=== PATIENT | female | born 1965 | race Hispanic/Latino ===

== ENCOUNTER 2017-09-16 04:35 | Emergency (ER) | payer MEDICAID, MEDICARE ==
[2017-09-16 04:35] VITALS: BMI 19.3
--- NOTE | 2017-09-16 05:00 | ED PDOC ---
Arrival/HPI - General Chief Complaint: Trauma Time Seen by Provider: 09/16/17 04:55 Historian: Patient - History of Present Illness Narrative History of Present Illness (Text): 09/16/17 04:55 Cira Estrada is a 52 year old female, whose past medical history includes schizophrenia, who presents to the Emergency department brought in by EMS status mechanical fall tonight. Patient states she slipped and fell on to her left side while walking insider her apartment prior to arrival. Patient sustained a laceration to her left eyebrow/forehead and is complaining of left shoulder pain, worse with movement. Patient denies any back pain, neck pain, headache, dizziness, loss of consciousness, chest pain, shortness of breath, nausea, vomiting, or any other complaints. Time/Duration: Prior to Arrival Symptom Onset: Sudden Symptom Course: Unchanged Activities at Onset: Light Context: Walking, Home, Slipped Past Medical History - Provider Review Nursing Documentation Reviewed: Yes - Past History Past History: No Previous - Infectious Disease Hx of Infectious Diseases: None - Tetanus Immunization Tetanus Immunization: Unknown - Reproductive Menopause: Yes - Cardiac Hx Cardiac Disorders: No - Pulmonary Hx Respiratory Disorders: No - Neurological Hx Neurological Disorder: No - HEENT Hx HEENT Disorder: No - Renal Hx Renal Disorder: No - Endocrine/Metabolic Hx Endocrine Disorders: No - Hematological/Oncological Hx Blood Disorders: Yes Hx Anemia: Yes - Integumentary Hx Dermatological Disorder: No - Musculoskeletal/Rheumatological Hx Falls: No - Gastrointestinal Hx Gastrointestinal Disorders: Yes (colitis on this admission) - Genitourinary/Gynecological Hx Genitourinary Disorders: No - Psychiatric Hx Depression: Yes Hx Emotional Abuse: No Hx Physical Abuse: No Hx Schizophrenia: Yes Hx Substance Use: No - Past Surgical History Past Surgical History: No Previous - Suicidal Assessment Feels Threatened In Home Enviroment: No Family/Social History - Physician Review Nursing Documentation Reviewed: Yes Family/Social History: Unknown Family HX Smoking Status: Never Smoked Hx Alcohol Use: No Hx Substance Use: No Hx Substance Use Treatment: No Allergies/Home Meds Allergies/Adverse Reactions: Allergies No Known Allergies Allergy (Verified 11/22/12 14:53) Home Medications: Home Meds Medication Instructions Recorded Confirmed traZODone [trazodone Hydrochloride] 100 mg PO HS 09/16/17 09/16/17 Review of Systems - Physician Review All systems were reviewed & negative as marked: Yes - Review of Systems Constitutional: Normal. absent: Fevers Eyes: Normal ENT: Normal Respiratory: Normal. absent: SOB, Cough Cardiovascular: Normal. absent: Chest Pain Gastrointestinal: Normal. absent: Abdominal Pain, Diarrhea, Nausea, Vomiting Genitourinary Female: Normal. absent: Dysuria, Frequency, Hematuria, Urine Output Changes Musculoskeletal: Arthralgias (+left shoulder pain). absent: Back Pain, Neck Pain Skin: Laceration (+left eyebrow laceration) Neurological: Normal. absent: Headache, Dizziness Endocrine: Normal Hemo/Lymphatic: Normal Psychiatric: Normal Physical Exam Vital Signs Reviewed: Yes Vital Signs Temp Pulse Resp BP Pulse Ox 09/16/17 08:03 98.8 F 99 H 19 116/79 100 09/16/17 07:25 97.5 F L 86 18 128/84 100 09/16/17 07:00 97.5 F L 85 18 126/81 97 09/16/17 06:35 90 18 131/80 100 09/16/17 04:52 97.5 F L 89 18 124/71 98 Temperature: Afebrile Blood Pressure: Normal Pulse: Regular Respiratory Rate: Normal Appearance: Positive for: Well-Appearing, Non-Toxic, Comfortable Pain Distress: None Mental Status: Positive for: Alert and Oriented X 3 - Systems Exam Head: Present: Normocephalic, Laceration (4 cm stellate laceration to left eyebrow/forehead laceration) Pupils: Present: PERRL Extroacular Muscles: Present: EOMI Conjunctiva: Present: Normal Mouth: Present: Moist Mucous Membranes Neck: Present: Normal Range of Motion Respiratory/Chest: Present: Clear to Auscultation, Good Air Exchange. No: Respiratory Distress, Accessory Muscle Use Cardiovascular: Present: Regular Rate and Rhythm, Normal S1, S2. No: Murmurs Abdomen: Present: Normal Bowel Sounds. No: Tenderness, Distention, Peritoneal Signs Back: Present: Normal Inspection Upper Extremity: Present: NORMAL PULSES, Tenderness (Tenderness to left anterior shoulder and pain with any attempt at left shoulder movement), Neurovascularly Intact, Capillary Refill < 2s. No: Cyanosis, Edema, Temperature Abnormalties Lower Extremity: Present: Normal Inspection. No: Edema Neurological: Present: GCS=15, CN II-XII Intact, Speech Normal Skin: Present: Warm, Dry, Normal Color. No: Rashes Psychiatric: Present: Alert, Oriented x 3, Normal Insight, Normal Concentration Medical Decision Making ED Course and Treatment: 09/16/17 04:56 Impression: 52 year old female complaining of left shoulder pain and left eyebrow laceration s/p fall prior to arrival. Plan: -- CT Head w/o contrast -- XR Left Shoulder -- TDAP -- Dilaudid -- Reassess and disposition Prior Visits: Notes and results from previous visits were reviewed. Progress Notes: 09/16/17 05:28 Laceration repair performed by surgical technologist coupon collection clerk, Dr. Connolly. 09/16/17 07:09 Pt. under conscious sedation with Etomidate had left shoulder manually reduced with traction applied.Pt. monitored throughout.See procedure sheet.Pt. tolerated the procedure well.Post reduction X-ray with good alignment. - RAD Interpretation Radiology Orders: 09/16/17 05:09 HEAD W/O CONTRAST [CT] Stat SHOULDER LEFT [RAD] Stat 09/16/17 07:06 SHOULDER LEFT ONE VIEW (OR) [RAD] Stat - Medication Orders Current Medication Orders: Discontinued Medications Hydromorphone HCl (Dilaudid) 1 mg IVP STAT STA Stop: 09/16/17 05:02 Last Admin: 09/16/17 05:10 Dose: 1 mg MAR Pain Assessment Document 09/16/17 05:10 AD (Rec: 09/16/17 05:39 AD [id number]) Pain Reassessment Is this a pain reassessment? No Presence of Pain Presence of Pain Yes Pain Scale Used Pain Scale Used Numeric Description Intensity of Pain at present 10 Pain Behavior Moaning Facial Grimacing IVP Administration Document 09/16/17 05:10 AD (Rec: 09/16/17 05:39 AD [id number]) Charges for Administration # of IVP Administrations 1 Tetanus/Reduced Diphtheria/Acell Pertussis (Boostrix Vaccine Inj) 0.5 ml IM .ONCE ONE Stop: 09/16/17 05:11 Last Admin: 09/16/17 05:20 Dose: 0.5 ml Immunization Registry Document 09/16/17 05:20 AD (Rec: 09/16/17 06:18 AD [id number]) Immunization Registry Consent Date 09/16/17 - Scribe Statement The provider has reviewed the documentation as recorded by the Scribe Jasmine Badillo Provider Scribe Attestation: All medical record entries made by the Scribe were at my direction and personally dictated by me. I have reviewed the chart and agree that the record accurately reflects my personal performance of the history, physical exam, medical decision making, and the department course for this patient. I have also personally directed, reviewed, and agree with the discharge instructions and disposition. Disposition/Present on Arrival - Present on Arrival Any Indicators Present on Arrival: No History of DVT/PE: No History of Uncontrolled Diabetes: No Urinary Catheter: No History of Decub. Ulcer: No History Surgical Site Infection Following: None - Disposition Have Diagnosis and Disposition been Completed?: Yes Diagnosis: Facial laceration, Head injury, Shoulder dislocation Disposition: HOME/ ROUTINE Disposition Time: 07:40 Patient Plan: Discharge Condition: GOOD Discharge Instructions (ExitCare): Shoulder Dislocation (ED), Laceration (DC), Head Injury (ED) Additional Instructions: Maintain shoulder immobilizer/follow up with the orthopedist this week/keep facial sutures clean and dry/must have sutures removed in 5-7 days Referrals: Magdalene Monteiro MD [Primary Care Provider] - Porter Loja III, MD [Medical Doctor] - Follow up with primary Forms: [employer] (Hungarian)
[2017-09-16] MEDS ORDERED: HYDROmorphone 1 mg/ml ISec IVP STA (05:01)
[2017-09-16] MEDS ORDERED: TDAP Vaccine 0.5 mL Syr IM ONE (05:10)
[2017-09-16] MEDS ORDERED: Bacitracin 500 Units/gm Oint Foilpak UD ONE (05:30)
[2017-09-16] MEDS ORDERED: Etomidate 20 mg/10ml Inj IV ONE (06:53)
--- NOTE | 2017-09-16 07:00 | CT ---
EXAM: CT Head Without Intravenous Contrast EXAM DATE/TIME: 09/16/2017 5:09 AM CLINICAL HISTORY: 52 years old, female; Injury or trauma; Fall; Initial encounter; Concussion / head injury; Without loss of consciousness TECHNIQUE: Axial computed tomography images of the head/brain without intravenous contrast. All CT scans at this facility use one or more dose reduction techniques, viz.: automated exposure control; ma/kV adjustment per patient size (including targeted exams where dose is matched to indication; i.e. head); or iterative reconstruction technique. COMPARISON: CT - HEAD W/O CONTRAST 2012-09-18 21:37 FINDINGS: Brain: Mild cerebral atrophy. No hemorrhage. No significant white matter disease. Ventricles: Unremarkable. No ventriculomegaly. Bones/joints: Unremarkable. No acute fracture. Soft tissues: Unremarkable. Sinuses: Unremarkable as visualized. No acute sinusitis. Mastoid air cells: Unremarkable as visualized. No mastoid effusion. IMPRESSION: No acute cerebral hemorrhage or edema.
--- NOTE | 2017-09-16 07:01 | PCM.PROC ---
Procedures Attestation:: I certify that I have explained the specified Operation(s) or Procedure(s), risks, benefits and reasonable alternatives to the Patient and/or other person responsible. The opportunity was given to ask questions and all questions answered - Laceration lidocaine 1% contaminated irrigated extensively left face 5-0 other local infiltration simple, interrupted running simple, interrupted Site: face Side (if applicable): left Size (cm): 2 Description: stellate Depth: simple, single layer Anesthesia used: lidocaine 1% Anesthesia technique: local infiltration Amount (mLs): 5 Pre-repair: irrigated extensively Skin layer closed with: other (nylon) Size: 5-0 Number of sutures: 3 Technique: simple, interrupted, running (Medial: simple interupted , lateral: simple interupted, inferior: simple running. )
[2017-09-16 07:26] VITALS: O2SAT 100
[2017-09-16 08:08] VITALS: BP 116/79; PULSE 99; RESP 19; TEMP 98.8
--- NOTE | 2017-09-16 08:31 | RAD ---
PROCEDURE: Radiographs of the Left Shoulder HISTORY: post reduction COMPARISON: 09/16/2017 at 6:28 a.m. FINDINGS: BONES: Examination limited. Two internal rotation views are submitted. Previous anterior dislocation has been reduced. No definite fracture identified. Acromioclavicular articulation intact. JOINTS: As above SOFT TISSUES: Normal. OTHER FINDINGS: None. IMPRESSION: Close reduction of anterior dislocation, left shoulder. Limited examination
--- NOTE | 2017-09-16 08:32 | RAD ---
PROCEDURE: Radiographs of the Left Shoulder HISTORY: injury COMPARISON: No prior. FINDINGS: BONES: Anterior dislocation at glenohumeral articulation. Curvilinear lucency at the periphery of the glenoid is of uncertain significance. Unlikely that this represents acute fracture. No acute fracture is otherwise identified. JOINTS: Acromioclavicular articulation grossly intact. SOFT TISSUES: Normal. OTHER FINDINGS: None. IMPRESSION: Anterior dislocation glenohumeral articulation. No definite fracture.
== END 2017-09-16 08:30 | disposition home or self-care (01) ==
LOC: ED 04:35
DX: S43.005A Unspecified dislocation of left shoulder joint, initial encounter (principal); S01.112A Laceration without foreign body of left eyelid and periocular area, initial encounter; S09.90XA Unspecified injury of head, initial encounter; W01.0XXA Fall on same level from slipping, tripping and stumbling without subsequent striking against object, initial encounter; Y93.01 Activity, walking, marching and hiking; Y92.039 Unspecified place in apartment as the place of occurrence of the external cause; Z23 Encounter for immunization
CPT/HCPCS: 12011; 23650; 70450; 73020; 73030; 90471; 90715; 96374; 99285; J1170

== ENCOUNTER 2018-12-28 09:06 | Observation (INO) | payer MEDICARE, OTHER ==
[2018-12-28] MEDS ORDERED: Morphine 2 mg/ml ISec IM STA (09:47)
--- NOTE | 2018-12-28 09:48 | ED PDOC ---
Arrival/HPI - General Chief Complaint: Trauma Time Seen by Provider: 12/28/18 09:16 Historian: Patient - History of Present Illness Narrative History of Present Illness (Text): 12/28/18 09:44 53yr old female presents today with left ankle pain s/p fall. pt states she slipped on the mud today and fell twisting left ankle. pt c/o severe pain to the left ankle. pt denies numbness, weakness, tingling in the extremity. incident occurred prior to arrival. no medications have been taken for pain. pt denies hitting her head. no LOC. no cp or sob. no dizziness or weakness. no other complaints. Past Medical History - Provider Review Nursing Documentation Reviewed: Yes - Past History Past History: No Previous - Infectious Disease Hx of Infectious Diseases: None - Tetanus Immunization Tetanus Immunization: Unknown - Cardiac Hx Cardiac Disorders: No - Pulmonary Hx Respiratory Disorders: No - Neurological Hx Neurological Disorder: No - HEENT Hx HEENT Disorder: No - Renal Hx Renal Disorder: No - Endocrine/Metabolic Hx Endocrine Disorders: No - Hematological/Oncological Hx Blood Disorders: Yes Hx Anemia: Yes - Integumentary Hx Dermatological Disorder: No - Musculoskeletal/Rheumatological Hx Falls: No - Gastrointestinal Hx Gastrointestinal Disorders: Yes (colitis on this admission) - Genitourinary/Gynecological Hx Genitourinary Disorders: No - Psychiatric Hx Depression: Yes Hx Emotional Abuse: No Hx Physical Abuse: No Hx Schizophrenia: Yes Hx Substance Use: No - Past Surgical History Past Surgical History: No Previous - Anesthesia Hx Anesthesia: No Hx Anesthesia Reactions: No Hx Malignant Hyperthermia: No - Suicidal Assessment Feels Threatened In Home Enviroment: No Family/Social History - Physician Review Nursing Documentation Reviewed: Yes Family/Social History: Unknown Family HX Smoking Status: Never Smoked Hx Alcohol Use: No Hx Substance Use: No Hx Substance Use Treatment: No Allergies/Home Meds Allergies/Adverse Reactions: Allergies No Known Allergies Allergy (Verified 11/22/12 14:53) Home Medications: Home Meds Medication Instructions Recorded Confirmed Alprazolam [Xanax] 0.5 mg PO DAILY 12/28/18 12/28/18 Gabapentin [Neurontin] 600 mg PO BID 12/28/18 12/28/18 Naproxen [Naprosyn] 500 mg PO Q6 PRN 12/28/18 12/28/18 OLANZapine [ZyPREXA] 10 mg PO HS 12/28/18 12/28/18 Pantoprazole Sodium [Protonix] 40 mg PO BID 12/28/18 12/28/18 Ranitidine HCl [Zantac] 150 mg PO DAILY 12/28/18 12/28/18 Sucralfate [Carafate] 1 gm PO BID 12/28/18 12/28/18 busPIRone [Buspar] 7.5 mg PO BID 12/28/18 12/28/18 oxyCODONE/Acetaminophen [Percocet 1 tab PO BID PRN 12/28/18 12/28/18 5/325 mg Tab] traZODone [trazodone Hydrochloride] 3 tab PO HS 12/28/18 12/28/18 Review of Systems - Review of Systems Constitutional: absent: Fatigue, Fevers Respiratory: absent: SOB, Cough Cardiovascular: absent: Chest Pain, Palpitations Gastrointestinal: absent: Abdominal Pain, Diarrhea, Nausea, Vomiting Musculoskeletal: Arthralgias (left ankle pain/deformity). absent: Back Pain, Neck Pain Skin: absent: Rash, Pruritis Neurological: absent: Headache, Dizziness Psychiatric: absent: Anxiety, Depression, Suicidal Ideation Physical Exam Vital Signs Reviewed: Yes Vital Signs Temp Pulse Resp BP Pulse Ox 12/28/18 09:32 98.3 F 91 H 16 138/95 H 97 Temperature: Afebrile Blood Pressure: Hypertensive Pulse: Regular Respiratory Rate: Normal Appearance: Positive for: Well-Appearing, Non-Toxic, Comfortable Pain Distress: None Mental Status: Positive for: Alert and Oriented X 3 - Systems Exam Head: Present: Atraumatic Mouth: Present: Moist Mucous Membranes Neck: Present: Normal Range of Motion Respiratory/Chest: Present: Clear to Auscultation, Good Air Exchange. No: Respiratory Distress, Accessory Muscle Use Cardiovascular: Present: Regular Rate and Rhythm, Normal S1, S2. No: Murmurs Abdomen: No: Tenderness Lower Extremity: Present: NORMAL PULSES, Tenderness (left ankle; + ttp over medial and lateral malleolus; + ecchymosis and abrasion noted to medial malleolus; sensation and distal pulses intact; cap refill <2. ), Swelling, Neurovascularly Intact, Capillary Refill < 2 s. No: CALF TENDERNESS, Cyanosis, Normal ROM, Erythema, Temperature Abnormalties Neurological: Present: GCS=15, Speech Normal Skin: Present: Warm, Dry, Normal Color Psychiatric: Present: Alert, Oriented x 3 Medical Decision Making ED Course and Treatment: 12/28/18 09:51 Patient nontoxic well-appearing in no distress with stable vital signs X-rays of the left ankle: + fracture dislocation. Morphine IM; 12/28/18 12:[address] Carrillo; she would like to consult dr. adhikari. case discussed with dr. adhikari; he will come to er to reduce ankle. pt seen by dr. adhikari at beside; ankle reduced; post reduction films in adequate position. dr. carrillo at bedside. will admit patient observational status for ankle fracture with dislocation will need medical clearance for surgery. pre op labs ordered. all results discussed with patient at bedside; impression;ankle fracture with dislocation admit med/surg observational status - RAD Interpretation Radiology Orders: 12/28/18 09:33 ANKLE LEFT 3 VIEWS ROUTINE [RAD] Stat Disposition/Present on Arrival - Present on Arrival Any Indicators Present on Arrival: No History of DVT/PE: No History of Uncontrolled Diabetes: No Urinary Catheter: No History of Decub. Ulcer: No History Surgical Site Infection Following: None - Disposition Have Diagnosis and Disposition been Completed?: Yes Diagnosis: Fracture dislocation of ankle Disposition: HOSPITALIZED Disposition Time: 12:30 Patient Plan: Observation Patient Problems: Current Active Problems Problem Status Onset Fracture dislocation of ankle Acute Condition: FAIR
[2018-12-28] MEDS ORDERED: Morphine 4 mg/ml ISec IVP STA (12:05)
--- NOTE | 2018-12-28 12:07 | RAD ---
Date of service: 12/28/2018 PROCEDURE: Left Ankle Radiographs. HISTORY: fall/ r/o fx COMPARISON: None available. FINDINGS: BONES: There is anterior dislocation of the tibia with respect to the talus and possible fracture of the posterior malleolus. There is also a fracture (presumed comminuted) of the distal fibula as well. Soft tissue swelling lateral greater than medial. JOINTS: As above. SOFT TISSUES: As above. OTHER FINDINGS: None. IMPRESSION: There is anterior dislocation of the tibia with respect to the talus and possible fracture of the posterior malleolus. Also there is a fracture (presumably comminuted) of the distal fibula as well. Soft tissue swelling lateral greater than medial.
[2018-12-28 13:43] LABS: BASO # 0.02 K/mm3 (0.0-2.0); BASO % 0.3 % (0.0-3.0); EOS # 0.1 (0.0-0.7); EOS % 1.1 % (1.5-5.0); HEMOGLOBIN 7.4 g/dL (12.0-16.0); LYMPH # 1.6 (1.2-3.4); LYMPH % 23.9 % (22.0-35.0); MEAN CELL VOLUME 69.3 fl (80.0-105.0); MEAN CORPUSCULAR HEMOGLOBIN 18.5 pg (25.0-35.0); MEAN CORPUSCULAR HGB CONC 26.6 g/dl (31.0-37.0); MONO # 0.4 (0.1-0.6); MONO % 6.5 % (1.0-6.0); PLATELET COUNT 214 10^3/uL (120.0-450.0); RBC 4.01 10^6/uL (3.5-6.1); RED CELL DISTRIBUTION WIDTH 22.1 % (11.5-14.5); WHITE BLOOD COUNT 6.6 10^3/uL (4.5-11.0)
[2018-12-28 13:51] LABS: ALB/GLOB RATIO 1.3 (1.1-1.8); ALBUMIN 4.5 g/dL (3.0-4.8); ALT/SGPT 14 U/L (7-56); AST/SGOT 31 U/L (14-36); BLOOD UREA NITROGEN 15 mg/dL (7-21); CALCIUM 9.1 mg/dL (8.4-10.5); GFR NON-AFRICAN AMERICAN > 60
--- NOTE | 2018-12-28 13:54 | RAD ---
Date of service: 12/28/2018 PROCEDURE: Left Ankle Radiographs. HISTORY: Post reduction COMPARISON: Comparison made with prior radiographs of the left ankle obtained earlier same day FINDINGS: Note that study is slightly limited due to overlying fiberglass cast which obscures fine soft tissue and bone detail. BONES: There has been closed reduction previously noted comminuted fracture distal fibula and anteriorly dislocated left tibia with better anatomic alignment.. There is also a fracture of the posterior malleolus. JOINTS: Normal. No osteoarthritis. Ankle mortise maintained. Talar dome intact SOFT TISSUES: Soft tissue swelling lateral greater than medial OTHER FINDINGS: None. IMPRESSION: Interval closed reduction previously noted fracture dislocation left ankle as detailed
--- NOTE | 2018-12-28 13:56 | RAD ---
Date of service: 12/28/2018 HISTORY: pre op COMPARISON: Comparison made with chest radiograph dated 11/28/2012. FINDINGS: LUNGS: No active pulmonary disease. PLEURA: No significant pleural effusion identified, no pneumothorax apparent. CARDIOVASCULAR: No aortic atherosclerotic calcification present. Normal cardiac size. No pulmonary vascular congestion. OSSEOUS STRUCTURES: Mild multilevel degenerative spondylosis of the thoracic spine. There is a levoscoliosis the lower thoracic region likely compensatory secondary to a dextroscoliosis upper lumbar region. VISUALIZED UPPER ABDOMEN: Normal. OTHER FINDINGS: None. IMPRESSION: No active disease.
[2018-12-28 14:04] LABS: INR 1.01; PARTIAL THROMBOPLASTIN TIME 28.2 Seconds (26.9-38.3); PROTHROMBIN TIME 11.4 SECONDS (9.4-12.5)
--- NOTE | 2018-12-28 14:19 | CARD ---
APPROVED REPORT Date of service: 12/28/2018 EKG Measurement Heart [id number] <Conclusion> Normal sinus rhythm Normal ECG
[2018-12-28 16:20] VITALS: BMI 28.3
[2018-12-28] MEDS ORDERED: Influenza Vaccine 60 mcg/0.5 mL SYR (4YR UP) IM ONE (16:24)
[2018-12-28] MEDS ORDERED: Pneumococcal 23-Valent Vaccine IM ONE (16:24)
--- NOTE | 2018-12-28 19:47 | CON ---
DATE OF CONSULTATION: 12/28/2018 ER CONSULTATION REASON FOR CONSULTATION: Left ankle fracture dislocation. HISTORY OF PRESENT ILLNESS: This is a 53-year-old female, who presented to the emergency department earlier today, status post fall with left ankle pain and deformity. The patient denies any other injury. She denies any numbness or tingling in the left foot. She denies any other injuries. PHYSICAL EXAMINATION: GENERAL: The patient is a middle-aged female, in no apparent distress. She is awake, alert, and oriented x3. EXTREMITIES: Evaluation of the left ankle shows obvious left ankle swelling and deformity. She has palpable DP pulse. Neurovascularly, she is grossly intact and wiggling all her toes. DIAGNOSTIC DATA: X-ray is consistent with the ankle and looks like a trimalleolar fracture dislocation. A closed reduction was performed and the left lower extremity was splinted. Postreduction x-rays show a reduced trimalleolar ankle fracture. Postreduction, the patient also is neurovascularly intact with palpable pulses. Please note, the patient did have a small amount of ecchymosis along the medial aspect of her ankle joint prior to the reduction. PLAN: At this point, I will recommend nonweightbearing crutches for ambulation, and I did explain to the patient that this injury will require a surgery. For now, ice and elevation. She will follow up as an outpatient for elective surgery. Raymond Baig MD
[2018-12-28] MEDS ORDERED: Oxycodone/Acetaminophen 5/325 mg Tab PO PRN (20:20)
--- NOTE | 2018-12-28 20:59 | CP.PCM.PCO ---
Physician Communication Note - Physician Communication Note Physician Communication Note: Blood consent obtained per protocol, risks/benefits explained.
--- NOTE | 2018-12-29 01:43 | HP ---
DATE OF EXAM: 12/28/2018 HISTORY OF PRESENT ILLNESS: The patient is a 53-year-old, came to emergency room after she fell. The patient states she went to grab coffee for herself and for her friend. When she fell, she was able to get up and walk, and when she reached friend, she started to have pain and swelling and she noticed the deformity, so her friend called ambulance, and she was brought to the emergency room. No loss of consciousness. No headache or dizziness. PAST MEDICAL HISTORY: Significant for: 1. Peptic ulcer disease. 2. History of anxiety disorder. 3. History of bipolar disorder. ALLERGIES: SHE IS NOT ALLERGIC TO ANY MEDICATIONS. MEDICATIONS AT HOME: She is on trazodone three tablets at bedtime, BuSpar 7.5 twice a day, Carafate 1 g b.i.d., ranitidine 150 daily, pantoprazole 40 mg b.i.d., Zyprexa 10 mg at bedtime, naproxen 500 every 6 hours, gabapentin 600 twice a day, Xanax 0.5 daily. SOCIAL HISTORY: She lives with her boyfriend. Denies smoking, drinking, alcohol use. PHYSICAL EXAMINATION: GENERAL: She is awake, alert, oriented, communicative. VITAL SIGNS: She is afebrile, pulse 87, respirations 18, blood pressure 132/83. LUNGS: Bilateral fair airflow. No rhonchi or crackle. HEART: S1 and S2 audible. ABDOMEN: Soft, nontender. No rebound. No guarding. NEUROLOGIC: The patient is awake and alert, able to communicate. LABORATORY DATA: WBC 6.6, hemoglobin 7.4, hematocrit 27.8, and platelets 214. PT of 11.4, INR of 1.01. Chemistry; sodium 141, potassium 4.2, chloride 104, CO2 of 26, BUN 15, creatinine 0.8, and blood sugar 149. ASSESSMENT: 1. Status post fall. 2. Left trimalleolar fracture. The patient was seen by Dr. Baig, has closed reduction. 3. Bipolar disorder. 4. Anemia. PLAN: We will give her blood transfusion. We will start her on analgesics. We will resume her medications and plan for admission. We will do her iron studies. We will follow up CBC and CMP in a.m. Riaz Carrillo MD [facility] # [id number]
[2018-12-29 07:03] LABS: BASO # 0.01 K/mm3 (0.0-2.0); BASO % 0.2 % (0.0-3.0); EOS # 0.1 (0.0-0.7); EOS % 1.8 % (1.5-5.0); LYMPH # 1.3 (1.2-3.4); LYMPH % 21.3 % (22.0-35.0); MEAN CELL VOLUME 73.3 fl (80.0-105.0); MEAN CORPUSCULAR HGB CONC 28.6 g/dl (31.0-37.0); MONO # 1.3 (0.1-0.6); MONO % 21.1 % (1.0-6.0); PLATELET COUNT 151 10^3/uL (120.0-450.0); RBC 4.39 10^6/uL (3.5-6.1); RED CELL DISTRIBUTION WIDTH 23.1 % (11.5-14.5)
[2018-12-29 07:10] LABS: HEMOGLOBIN 9.2 g/dL (12.0-16.0)
[2018-12-29 07:12] LABS: IRON 43 ug/dL (45-180)
[2018-12-29 07:21] LABS: % IRON SATURATION 10 % (20-55); TOTAL IRON BINDING CAPACITY 412 ug/dL (265-497)
[2018-12-29 07:22] LABS: ALB/GLOB RATIO 1.3 (1.1-1.8); ALT/SGPT 14 U/L (7-56); AST/SGOT 23 U/L (14-36); BLOOD UREA NITROGEN 13 mg/dL (7-21); CALCIUM 8.8 mg/dL (8.4-10.5); GFR NON-AFRICAN AMERICAN > 60
[2018-12-29 07:29] LABS: FREE T4 1.2 ng/dL (0.78-2.19)
[2018-12-29 08:11] LABS: BASOPHIL 3 % (0.0-1.0); LYMPHOCYTE 19 % (22.0-35.0); MONOCYTE 12 % (1.0-6.0); NEUTROPHIL 66 % (50.0-70.0)
[2018-12-29 08:14] LABS: HYPOCHROMIA 1+; MICROCYTOSIS 2+; OVALOCYTES SLIGHT; PLATELET ESTIMATE NORMAL (NORMAL); TEAR DROP CELLS SLIGHT
[2018-12-29 08:39] VITALS: RESP 20
[2018-12-29] MEDS ORDERED: Pantoprazole 40 mg EC Tab PO SCH (10:00)
[2018-12-29] MEDS ORDERED: TraMADol/Apap 37.5/325 mg Tab PO STA (10:15)
[2018-12-29 13:41] VITALS: BP 133/83; PULSE 100; TEMP 99.2; O2SAT 95
--- NOTE | 2018-12-29 20:49 | DS ---
HISTORY OF PRESENT ILLNESS: The patient is 63 years old, who sustained a left ankle injury and she slipped on the slushy floor and was unable to walk, so her friend called ambulance, she was brought to emergency room and was found to have left ankle fracture, was seen by Dr. Baig, has external fixation and cast was placed. The patient was found to be anemic. She was given two blood transfusions. Seems to be doing better. PHYSICAL EXAMINATION: GENERAL: Today, she is awake, alert, oriented, and communicative. VITAL SIGNS: She is afebrile, pulse 82, respirations 20, and blood pressure 127/80. LUNGS: Bilateral fair airflow. No rhonchi or crackle. HEART: S1 and S2 audible. ABDOMEN: Soft and nontender. No rebound. No guarding. NEUROLOGIC: The patient is awake and alert, able to communicate. EXTREMITIES: Left foot is in the cast. ASSESSMENT AND PLAN: 1. Status post fall. 2. Left ankle fracture. 3. Iron deficiency anemia, secondary to peptic ulcer disease. 4. Bipolar disorder. PLAN: The patient will receive one dose of IV Venofer. Physical therapy will evaluate her to try her for crutches. After that, she will be discharged home and she will be followed by Dr. Baig on and will scheduled for open reduction and internal fixation on a later date once the swelling goes down. Riaz Carrillo MD
== END 2018-12-29 17:12 | disposition home or self-care (01) ==
LOC: ED 09:06 → ERH 13:37 → 5RNO 17:04
PROVIDERS: ADMIT Internal Medicine; ATTEND Internal Medicine
DX: S82.852A Displaced trimalleolar fracture of left lower leg, initial encounter for closed fracture (principal); S93.05XA Dislocation of left ankle joint, initial encounter; D50.9 Iron deficiency anemia, unspecified; K27.9 Peptic ulcer, site unspecified, unspecified as acute or chronic, without hemorrhage or perforation; F20.9 Schizophrenia, unspecified; F31.9 Bipolar disorder, unspecified; W01.0XXA Fall on same level from slipping, tripping and stumbling without subsequent striking against object, initial encounter; X50.1XXA Overexertion from prolonged static or awkward postures, initial encounter; Z87.11 Personal history of peptic ulcer disease
CPT/HCPCS: 27818; 36415; 36430; 71045; 73610; 80053; 83540; 83550; 84439; 84443; 85025; 85610; 85730; 86850; 86900; 86920; 93005; 96372; 96374; 97116; 97162; 97530; 99285; G0378; G8978; G8979; J1756; J2270; P9016

== ENCOUNTER → 2019-01-08 | Day surgery (SDC) | payer MEDICARE, OTHER ==
[2018-12-31 13:09] VITALS: BMI 26.5
[~2019-01-08] MED LIST: Bupivacaine 0.5% 50 ML IJ ONE; HYDROmorphone 0.5 mg/0.5 ml ISec IVP PRN; Lactated Ringer's 1,000 ML IV SCH; Midazolam 2 MG/2 ML VIAL ONE; Oxycodone/Acetaminophen 5/325 mg Tab PO PRN; Propofol 10 mg/ml Inj (20 ML) ONE
--- NOTE | 2019-01-08 14:10 | RAD ---
Date of service: 01/08/2019 PROCEDURE: Fluoroscopy over 1 hr HISTORY: ORIF LEFT ANKLE COMPARISON: TECHNIQUE: Four views of the left ankle were obtained FINDINGS: The study shows placement of a plate and screws in the lateral malleolus. There is anatomic alignment IMPRESSION: As above
--- NOTE | 2019-01-08 14:24 | PCM.SURG1 ---
Surgeon's Initial Post Op Note - Surgeon's Notes Surgeon: Asa Baig MD [employer] Program Manager: Silvia Vivas PA-C Anesthesia Administered By: Dr. Connolly Pre-Operative Diagnosis: left ankle fx Operative Findings: see full note Post-Operative Diagnosis: same Operation Performed: ORIF lateral malleolus fx left Specimen/Specimens Removed: none Estimated Blood Loss: EBL {In ML}: 5 Blood Products Given: N/A Drains Used: No Drains Post-Op Condition: Fair Date of Surgery/Procedure: 01/08/19 Time of Surgery/Procedure: 14:24
--- NOTE | 2019-01-08 14:28 | CP.PCM.PN ---
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 Endocet 5/325mg #60 given on 12/23/18. Patient given Percocet 5/325mg #20 post operatively. Patient counseled on the risks of addiction, physical or psychological dependence, and overdose associated with opioid drugs and the danger of taking opioid drugs with alcohol and other central nervous system depressants, and cautioned patient on storage and disposal Objective - Vital Signs/Intake and Output Vital Signs (last 24 hours): Temp Pulse Resp BP Pulse Ox 99.1 F 101 H 19 116/87 98 01/08/19 10:10 01/08/19 10:10 01/08/19 10:10 01/08/19 10:10 01/08/19 10:10 Intake and Output: 01/08/19 01/08/19 06:59 18:59 Intake Total 0 Balance 0 - Medications Medications: Current Medications Oxycodone/Acetaminophen (Percocet 5/325 Mg Tab) 2 tab PO Q4H PRN PRN Reason: Pain, severe (8-10) Stop: 01/11/19 14:22
--- NOTE | 2019-01-08 15:19 | RAD ---
Date of service: 01/08/2019 PROCEDURE: Left Ankle Radiographs. HISTORY: s/o ORIF lat mall fx. Patient in PACU COMPARISON: 12/28/2018 FINDINGS: BONES: There has been internal fixation of the lateral malleolus. There is also a fracture of the posterior malleolus which is partially obscured by the plate. JOINTS: Normal. No osteoarthritis. Ankle mortise maintained. Talar dome intact SOFT TISSUES: Normal. OTHER FINDINGS: None. IMPRESSION: There has been internal fixation of the lateral malleolus. There is also a fracture of the posterior malleolus which is partially obscured by the plate.
[2019-01-08 17:36] VITALS: BP 154/90; PULSE 100; RESP 20; TEMP 97.5; O2SAT 96
--- NOTE | 2019-01-08 23:55 | OP ---
PROCEDURE DATE: 01/08/2019 PREOPERATIVE DIAGNOSIS: Left ankle bimalleolar fracture dislocation. POSTOPERATIVE DIAGNOSIS: Left ankle bimalleolar fracture dislocation. PROCEDURE: Open reduction and internal fixation of left ankle fracture. SURGEON: Raymond Baig MD CREW LEADER/CONTROL ROOM OPERATOR: Dr. Baig was assisted by Noreen Vivas, physician dental assistant medical assistant. Ms. Vivas was scrubbed and present throughout the entire case and assisted in the patient's positioning, retraction, and wound closure and splinting. ANESTHESIA: General. COMPLICATIONS: None. ESTIMATED BLOOD LOSS: 10 mL. IMPLANT: Synthes distal fibular locking plate. INDICATIONS FOR PROCEDURE: This is a 53-year-old female who approximately a week and half ago sustained a fall and sustained a left ankle fracture dislocation. She subsequently underwent a closed reduction in the emergency room and was splinted, and plan was for her to follow up for definite fixation once the soft tissue swelling subsided. The risks, benefits, and alternatives of the procedure were discussed with the patient, and the informed consent was obtained. OPERATIVE PROCEDURE: After the surgical site was signed and verified in the preoperative holding area, the patient was taken to the operating room and placed supine on the operating room table. After administration of general anesthesia, the patient received 2 g of Ancef IV. A tourniquet was placed about the left thigh. Care was taken to make sure all bony prominences and nerves were well padded and protected. Venodyne boot was placed on the nonoperative extremity. The left lower extremity was prepped and draped in the usual sterile fashion. The tourniquet was inflated. An approximately 7-cm longitudinal incision was made over the distal fibula. Soft tissue was dissected bluntly down to the fracture site. Once the fracture site was exposed, all fracture hematoma was evacuated. The wound was copiously irrigated with antibiotic saline solution. At this point, an open reduction was performed and reduction was provisionally held using bone reduction forceps. Reduction was checked using the image intensifier in both the AP and lateral planes. Satisfied, the fracture was first fixed with a lag screw across the fracture site, and then a Synthes distal fibular locking plate was applied with four locking screws distally and two cortical interlocking screws proximally. Once this was done, x-rays were taken to confirm good position of the plate and anatomic fracture reduction. At this point due to the size of posterior malleolus, a decision was made not to fix the posterior malleolus. Stress x-rays and cotton test were performed, which confirmed that the syndesmosis was intact. At this point, the wound was copiously irrigated and closed using interrupted 0 Vicryl suture, 2-0 Vicryl suture and 3-0 nylon. A sterile dressing was applied, and then a splint was placed. The patient was awakened from the procedure, taken to the recovery room in stable condition. Raymond Baig MD
== END | disposition home or self-care (01) ==
LOC: SDS 09:50
PROVIDERS: ATTEND Orthopaedic Surgery
DX: S82.842A Displaced bimalleolar fracture of left lower leg, initial encounter for closed fracture (principal); W19.XXXA Unspecified fall, initial encounter; Y92.9 Unspecified place or not applicable
CPT/HCPCS: 27814; 73610; C1713 ×7; J0690; J1100; J1170; J2250; J2405; J2704; J2765; J3010; J7120 ×2